=== PATIENT | male | born 1980 | race Caucasian/White ===

== ENCOUNTER 2017-01-01 14:36 | Emergency (ER) | payer OTHER ==
[2017-01-01] MEDS ORDERED: Iopamidol 755 MG/ML 500 ML Multipack Bottle IVPUSH STA (15:35)
--- NOTE | 2017-01-01 16:11 | EDM.PDOC ---
ED HPI GENERAL MEDICAL PROBLEM - General Chief Complaint: Abdominal Pain Stated Complaint: HERNIA Time Seen by Provider: 01/01/17 15:05 Source of Information: Reports: Patient History Limitations: Reports: No Limitations - History of Present Illness INITIAL COMMENTS - FREE TEXT/NARRATIVE: History of present illness: 36-year-old male comes in from work with concerns of pain in the periumbilical region. Indicates that it is burning in the bellybutton is more shallow than it usually is they touch base with their employee health individual who indicated that it could be an umbilical hernia that he should come in and be evaluated. Review of systems: As per history of present illness and below otherwise all systems reviewed and negative. Past medical history: As per history of present illness and as reviewed below otherwise noncontributory. Surgical history: As per history of present illness and as reviewed below otherwise noncontributory. Social history: No reported history of drug or alcohol abuse. Family history: As per history of present illness and as reviewed below otherwise noncontributory. Physical exam: HEENT: Atraumatic, normocephalic, pupils reactive, negative for conjunctival pallor or scleral icterus, mucous membranes moist, throat clear, neck supple, nontender, trachea midline. Lungs: Clear to auscultation, breath sounds equal bilaterally, chest nontender. Heart: S1S2, regular, negative for clicks, rubs, or JVD. Abdomen: Protuberant abdomen with notable shallow umbilicus that is tender to palpation, otherwise Negative for masses or hepatosplenomegaly. Negative for costovertebral tenderness. Pelvis: Stable nontender. Genitourinary: Deferred. Rectal: Deferred. Extremities: Atraumatic, negative for cords or calf pain. Neurovascular unremarkable. Neuro: Awake, alert, oriented. Cranial nerves II through XII unremarkable. Cerebellum unremarkable. Motor and sensory unremarkable throughout. Exam nonfocal. CT was able to identify the umbilical hernia without concerns for incarceration at this time there was a small amount of fat trapped at the hernia site Diagnostics: [CT of abdomen with contrast] Therapeutics: [] Impression: [Umbilical hernia without incarceration] Plan: [Follow-up with PCP] Definitive disposition and diagnosis as appropriate pending reevaluation and review of above. Umbilicus Pain Score (Numeric/FACES): 3 - Related Data Allergies Allergy/AdvReac Type Severity Reaction Status Date / Time No Known Allergies Allergy Verified 01/01/17 14:46 Home Meds: Home Meds . [No Known Home Meds] 01/01/17 [History] Past Medical History - Past Surgical History Musculoskeletal Surgical History: Reports: Other (See Below) Other Musculoskeletal Surgeries/Procedures:: left hand surgery, 4 plates and bone graft Social & Family History - Family History Family Medical History: Noncontributory - Tobacco Use Smoking Status *Q: Current Every Day Smoker Years of Tobacco use: 15 Packs/Tins Daily: 1.5 - Caffeine Use Caffeine Use: Reports: None - Recreational Drug Use Recreational Drug Use: No ED ROS GENERAL - Review of Systems Review Of Systems: See Below (See history of present illness) ED EXAM, GI/ABD - Physical Exam Exam: See Below (See history of present illness) Course - Vital Signs Last Recorded V/S: Last Vital Signs Temp 36.7 C 01/01/17 14:47 Pulse 110 H 01/01/17 14:47 Resp 16 01/01/17 14:47 BP 143/96 H 01/01/17 14:47 Pulse Ox 98 01/01/17 14:47 - Orders/Labs/Meds Orders: Active Orders 24 hr Category Date Time Status Abdomen Pelvis w Cont [CT] Stat Exams 01/01/17 15:01 Ordered Meds: Medications Discontinued Medications Generic Name Dose Route Start Last Admin Trade Name Raphael PRN Reason Stop Dose Admin Iopamidol 110 ml 01/01/17 15:35 01/01/17 15:36 Isovue Multipack-370 (76%) IVPUSH 01/01/17 15:36 110 ml ONETIME STA Administration Departure - Departure Time of Disposition: 16:11 Disposition: Home, Self-Care 01 Condition: Good Clinical Impression: Umbilical hernia - Discharge Information Forms: ED Department Discharge Additional Instructions: The following information is given to patients seen in the emergency department who are being discharged to home. This information is to outline your options for follow-up care. We provide all patients seen in our emergency department with a follow-up referral. The need for follow-up, as well as the timing and circumstances, are variable depending upon the specifics of your emergency department visit. If you don't have a primary care physician on staff, we will provide you with a referral. We always advise you to contact your personal physician following an emergency department visit to inform them of the circumstance of the visit and for follow-up with them and/or the need for any referrals to a consulting specialist. The emergency department will also refer you to a specialist when appropriate. This referral assures that you have the opportunity for follow-up care with a specialist. All of these measure are taken in an effort to provide you with optimal care, which includes your follow-up. Under all circumstances we always encourage you to contact your private physician who remains a resource for coordinating your care. When calling for follow-up care, please make the office aware that this follow-up is from your recent emergency room visit. If for any reason you are refused follow-up, please contact the [facility] Emergency Department at and asked to speak to the emergency department charge nurse. Follow-up with your primary care provider once 2 days You may take [id number] pain medication such as 800 mg of ibuprofen every 8 hours with food and/or Tylenol Return to ER as needed as discussed - My Orders Last 24 Hours: My Active Orders 01/01/17 15:01 Abdomen Pelvis w Cont [CT] Stat - Assessment/Plan Last 24 Hours: My Active Orders 01/01/17 15:01 Abdomen Pelvis w Cont [CT] Stat
[2017-01-01 16:34] VITALS: BP 146/84
--- NOTE | 2017-01-03 13:02 | CT ---
EXAM DATE: 01/01/17 PATIENT'S AGE: 36 Patient: INÉS PEREA Facility: [place], [place] Site . Site : [id number] Study: CT Abdomen/Pelvis [id number] 3:51:06 PM Ordering Physician: Doctor Jackson Final Report: INDICATION: Umbilical hernia. TECHNIQUE: Contiguous axial image were acquired through the abdomen and pelvis after the intravenous administration of contrast. Sagittal and coronal reconstructions. COMPARISON: None. FINDINGS: Visualized lower chest: Heart size is normal. No pericardial effusion. Tiny benign fissural nodule is seen on the right on image 3. There is mild posterior dependent bibasilar atelectasis. No pleural fluid. Abdomen and pelvis: The liver, gallbladder and bile ducts, spleen, pancreas, adrenal glands and kidneys are unremarkable. Minimal atherosclerotic changes are noted. Normal caliber abdominal aorta. No abnormally dilated bowel to suggest obstruction. No abnormal bowel wall thickening. Normal appendix. No free air or free fluid. No lymphadenopathy by size criteria. There is a small fat containing umbilical hernia, measuring 1.6 x 1.5 cm. No acute complication is seen. Specifically, no inflammatory changes are noted and no bowel is seen within the hernia sac. Unremarkable urinary bladder and prostate. Bones: No acute abnormality. IMPRESSION: 1. There is a small fat containing umbilical hernia, without evidence of an acute complication. 2. No other significant findings. Dictated by Karl Mcpherson MD @ 01/01/2017 4:10:22 PM Dictated by: Karl Mcpherson MD @ 01/01/2017 16:10:40 (Electronic Signature) Report Signed by Proxy. DILLAN
== END 2017-01-01 16:31 | disposition home or self-care (01) ==
LOC: MW.ED 14:36
DX: K42.9 Umbilical hernia without obstruction or gangrene (principal); F17.210 Nicotine dependence, cigarettes, uncomplicated
CPT/HCPCS: 74177; 99283; Q9967